=== PATIENT | female | born 1950 | race Caucasian/White ===

== ENCOUNTER → 2016-08-06 | Outpatient (CLI) | payer BC ==
[2012-08-01 04:48] VITALS: BP 129/85
--- NOTE | 2016-08-08 15:34 | MRI ---
MRI right shoulder without contrast Indication: Right shoulder pain x3 weeks. Comparison: None Technique: Multiplanar, multisequence MR images of the right shoulder were obtained without contrast . Findings: No acute fracture or subluxation of the shoulder is identified. There is a high-grade part ial articular sided tear of the supraspinatus and conjoined tendon, with partial propagation along t he infraspinatus musculotendinous junction. There is also a high-grade partial undersurface tear of the subscapularis associated with mild medial subluxation of the extra-articular long head biceps te ndon. The intra-articular portion of the biceps tendon is thickened, but otherwise grossly intact. T he teres minor is intact. There is moderate to advanced degenerative arthrosis of the AC joint with large superiorly and infer iorly projecting osteophytes, resulting in significant effacement of the underlying supraspinatus at the musculotendinous junction. There is a small amount of fluid seen within the subacromial/subdelt oid bursa. There is mild diffuse glenohumeral chondrosis, without evidence for full-thickness chondr al defect. There is degenerative fraying superior labrum. The remainder of the labrum is otherwise g rossly intact. There is no joint effusion. No significant muscle atrophy is appreciated. Impression: 1. High-grade partial articular sided tears of the supraspinatus, conjoined, and subscapularis tendo ns. 2. Intra-articular long head biceps tendinosis with mild medial subluxation of the extra articular p ortion of the tendon 3. 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 4. Subacromial/subdeltoid bursitis 5. Fraying of the superior labrum. Reported By:
== END | disposition home or self-care (01) ==
LOC: RAD 15:00
PROVIDERS: ATTEND Nurse Practitioner Family
DX: M25.511 Pain in right shoulder (principal); S46.811A Strain of other muscles, fascia and tendons at shoulder and upper arm level, right arm, initial encounter; X58.XXXA Exposure to other specified factors, initial encounter; M75.51 Bursitis of right shoulder; M19.011 Primary osteoarthritis, right shoulder
CPT/HCPCS: 73221